=== PATIENT | male | born 1995 | race Caucasian/White ===

== ENCOUNTER → 2019-11-13 | Outpatient (CLI) | payer OTHER ==
--- NOTE | 2019-11-13 12:39 | RADIOLOGY REPORT (SQ) ---
EXAM DESCRIPTION: LUMBAR SPINE COMPLETE IMAGES COMPLETED DATE/TIME: 11/13/2019 11:51 am REASON FOR STUDY: LUMBAGO WITH SCIATICA, LEFT SIDE M54.42 LUMBAGO WITH SCIATICA, LEFT SIDE COMPARISON: None. NUMBER OF VIEWS: Five views including obliques. TECHNIQUE: AP, lateral, oblique, and sacral radiographic images acquired of the lumbar spine. LIMITATIONS: None. FINDINGS: MINERALIZATION: Normal. SEGMENTATION: Normal. No transitional anatomy. ALIGNMENT: Straightening of the normal lumbar lordosis, likely positional. VERTEBRAE: Maintained height. No fracture or worrisome bone lesion. DISCS: Preserved height. No significant osteophytes or end plate irregularity. POSTERIOR ELEMENTS: Pedicles and facets are intact. No pars defect or posterior arch defects. HARDWARE: None in the spine. PARASPINAL SOFT TISSUES: Normal. PELVIS: Intact as visualized. No fractures or worrisome bone lesions. SI joints intact. OTHER: No other significant finding. IMPRESSION: No evidence of acute bony abnormality. No significant degenerative change. TECHNICAL DOCUMENTATION: JOB ID: [id number] 2010 [employer]- All Rights Reserved Reading location - IP/workstation name: [email or web address]
== END ==
LOC: OD 11:26
PROVIDERS: ATTEND Nurse Practitioner Family
DX: M54.42 Lumbago with sciatica, left side (principal)
CPT/HCPCS: 72110